=== PATIENT | female | born 1955 | race Asian ===

== ENCOUNTER 2019-06-07 09:16 | Emergency (ER) | payer SELFPAY ==
--- NOTE | 2019-06-07 09:27 | EDM.PDOC ---
ED HPI GENERAL MEDICAL PROBLEM - General Chief Complaint: Back Pain or Injury Stated Complaint: HIGH BP/BACK PAIN Time Seen by Provider: 06/07/19 09:26 - History of Present Illness INITIAL COMMENTS - FREE TEXT/NARRATIVE: 63-year-old female presents emergency room with sharp almost electrical pain between her shoulder blades extending down her left arm and it sometimes the right arm. Patient was sent here by the walk-in clinic at [place]. They did call report she had elevated blood pressure there systolics in the 180s at times. The patient recently moved here from [facility]. She has a history of hypertension tension treated with losartan and hyperlipidemia treated with Crestor. No prior history of coronary artery disease. The patient denies cough, she however she may have run a low-grade fever over the last couple of days. She's used some [id number] cold medication. She cannot identify any causes that make pain worse or better. Her son has done most the translating for her. Her pain is minimal at this point she does not need anything for pain control it was quite severe earlier. However this time she does rated at a 3. This pain started around 2:00 yesterday afternoon. The patient does get pain in her lower neck and upper back on a fairly regular basis but this is different and much worse. Upper Back Pain Score (Numeric/FACES): 8 - Related Data Allergies Allergy/AdvReac Type Severity Reaction Status Date / Time amoxicillin Allergy Cannot Verified 06/07/19 09:33 Remember Home Meds: Home Meds Losartan [Cozaar] 50 mg PO DAILY 06/07/19 [History] Losartan [Cozaar] 50 mg PO DAILY #10 tab 06/07/19 [Rx] Rosuvastatin [Crestor] 5 mg PO DAILY 06/07/19 [History] Rosuvastatin [Crestor] 5 mg PO DAILY #10 tab 06/07/19 [Rx] ED ROS GENERAL - Review of Systems Review Of Systems: See Below Constitutional: Reports: Fever (Possible) HEENT: Reports: Rhinitis, Throat Pain Respiratory: Reports: No Symptoms Cardiovascular: Reports: Chest Pain Endocrine: Reports: No Symptoms GI/Abdominal: Reports: No Symptoms : Reports: No Symptoms Musculoskeletal: Reports: No Symptoms Skin: Reports: No Symptoms Neurological: Reports: No Symptoms Immunologic: Reports: No Symptoms ED EXAM, GENERAL - Physical Exam Exam: See Below General Appearance: Alert, No Apparent Distress Head: Atraumatic, Normocephalic Neck: Normal Inspection, Supple, Non-Tender, Full Range of Motion. No: Lymphadenopathy (L), Lymphadenopathy (R) Respiratory/Chest: No Respiratory Distress, Lungs Clear, Normal Breath Sounds Cardiovascular: Regular Rate, Rhythm, No Edema, No Murmur GI/Abdominal: Normal Bowel Sounds, Soft, Non-Tender EKG INTERPRETATION EKG Date: 06/07/19 Rhythm: NSR [place]: Normal P-Wave: Present QRS: Normal ST-T: Other (Minimal ST depression in V3, V4 and V5) QT: Normal Comparison: NA - No Prior EKG EKG Interpretation Comments: Abnormal. A second EKG was obtained to check posterior leads and she demonstrated no ST elevation in these Course - Vital Signs Last Recorded V/S: Last Vital Signs Temp 37.1 C 06/07/19 09:23 Pulse 93 06/07/19 09:23 Resp 23 H 06/07/19 09:23 BP 135/89 06/07/19 10:56 Pulse Ox 95 06/07/19 09:23 - Orders/Labs/Meds Orders: Active Orders 24 hr Category Date Time Status EKG Documentation Completion [RC] STAT Care 06/07/19 09:45 Active Rapid Strep w/culture conf [STREP SCRN A RAPID W CULT Lab 06/07/19 09:54 Ordered CONF] [RM] Stat URINALYSIS W/MICROSCOPIC [UA W/MICROSCOPIC] [URIN] Stat Lab 06/07/19 09:45 Ordered Sodium Chloride 0.9% [Normal Saline] 100 ml Med 06/07/19 10:15 Active IV ASDIRECTED Sodium Chloride 0.9% [Saline Flush] Med 06/07/19 10:02 Active 10 ml FLUSH ONETIME PRN Medication Orders Sodium Chloride (Normal Saline) 100 mls @ 75 mls/hr IV ASDIRECTED FIONA Last Admin: 06/07/19 10:35 Dose: 75 mls/hr Sodium Chloride (Saline Flush) 10 ml FLUSH ONETIME PRN PRN Reason: IV FLUSH Last Admin: 06/07/19 10:35 Dose: 10 ml Admin: 06/07/19 10:31 Dose: 10 ml Labs: Laboratory Tests 06/07/19 06/07/19 06/07/19 Range/Units 09:46 09:46 09:46 WBC 10.75 H (3.98-10.04) K/mm3 RBC 4.52 (3.98-5.22) M/mm3 Hgb 13.1 (11.2-15.7) gm/L Hct 38.0 (34.1-44.9) % MCV 84.1 (79.4-94.8) fl MCH 29.0 (25.6-32.2) pg MCHC 34.5 (32.2-35.5) g/dl RDW Std Deviation 38.1 (36.4-46.3) fL Plt Count 271 (182-369) K/mm3 MPV 9.3 L (9.4-12.3) fl Neutrophils % (Manual) 74 H (40-60) % Band Neutrophils % 0 (0-10) % Lymphocytes % (Manual) 21 (20-40) % Atypical Lymphs % 0 % Monocytes % (Manual) 5 (2-10) % Eosinophils % (Manual) 0 L (0.7-5.8) % Basophils % (Manual) 0 L (0.1-1.2) Platelet Estimate Adequate Plt Morphology Comment Normal RBC Morph Comment Normal ESR 58 H (0-20) mm/hr PT (9.7-12.0) SECONDS INR APTT (22-31) SECONDS Sodium 140 (136-145) mEq/L Potassium 3.7 (3.5-5.1) mEq/L Chloride 104 (98-107) mEq/L Carbon Dioxide 26 (21-32) mEq/L Anion Gap 13.7 (5-15) BUN 10 (7-18) mg/dL Creatinine 0.8 (0.55-1.02) mg/dL Est Cr Clr Drug Dosing TNP Estimated GFR (MDRD) > 60 (>60) mL/min BUN/Creatinine Ratio 12.5 L (14-18) Glucose 104 (80-115) mg/dL Calcium 9.4 (8.5-10.1) mg/dL Total Bilirubin 1.0 (0.2-1.0) mg/dL AST 19 (15-37) U/L ALT 40 (14-59) U/L Alkaline Phosphatase 70 (46-116) U/L Troponin I < 0.017 (0.00-0.056) ng/mL C-Reactive Protein 3.7 H* (<1.0) mg/dL Total Protein 8.6 H (6.4-8.2) g/dl Albumin 3.9 (3.4-5.0) g/dl Globulin 4.7 gm/dL Albumin/Globulin Ratio 0.8 L (1-2) 06/07/19 Range/Units 09:46 WBC (3.98-10.04) K/mm3 RBC (3.98-5.22) M/mm3 Hgb (11.2-15.7) gm/L Hct (34.1-44.9) % MCV (79.4-94.8) fl MCH (25.6-32.2) pg MCHC (32.2-35.5) g/dl RDW Std Deviation (36.4-46.3) fL Plt Count (182-369) K/mm3 MPV (9.4-12.3) fl Neutrophils % (Manual) (40-60) % Band Neutrophils % (0-10) % Lymphocytes % (Manual) (20-40) % Atypical Lymphs % % Monocytes % (Manual) (2-10) % Eosinophils % (Manual) (0.7-5.8) % Basophils % (Manual) (0.1-1.2) Platelet Estimate Plt Morphology Comment RBC Morph Comment ESR (0-20) mm/hr PT 11.1 (9.7-12.0) SECONDS INR 1.02 APTT 25 (22-31) SECONDS Sodium (136-145) mEq/L Potassium (3.5-5.1) mEq/L Chloride (98-107) mEq/L Carbon Dioxide (21-32) mEq/L Anion Gap (5-15) BUN (7-18) mg/dL Creatinine (0.55-1.02) mg/dL Est Cr Clr Drug Dosing Estimated GFR (MDRD) (>60) mL/min BUN/Creatinine Ratio (14-18) Glucose (80-115) mg/dL Calcium (8.5-10.1) mg/dL Total Bilirubin (0.2-1.0) mg/dL AST (15-37) U/L ALT (14-59) U/L Alkaline Phosphatase (46-116) U/L Troponin I (0.00-0.056) ng/mL C-Reactive Protein (<1.0) mg/dL Total Protein (6.4-8.2) g/dl Albumin (3.4-5.0) g/dl Globulin gm/dL Albumin/Globulin Ratio (1-2) Meds: Medications Generic Name Dose Route Start Last Admin Trade Name Freq PRN Reason Stop Dose Admin Sodium Chloride 100 mls @ 75 mls/hr 06/07/19 10:15 06/07/19 10:35 Normal Saline IV 75 mls/hr ASDIRECTED FIONA Administration Sodium Chloride 10 ml 06/07/19 10:02 06/07/19 10:35 Saline Flush FLUSH 10 ml ONETIME PRN Administration IV FLUSH Discontinued Medications Generic Name Dose Route Start Last Admin Trade Name Freq PRN Reason Stop Dose Admin Iopamidol 100 ml 06/07/19 10:02 06/07/19 10:35 [id number] (76%) IVPUSH 06/07/19 10:03 100 ml ONETIME ONE Administration Nitroglycerin 0.4 mg 06/07/19 10:05 06/07/19 10:56 Nitrostat SL 0.4 mg Q5M PRN Administration Chest Pain - Re-Assessments/Exams Free Text/Narrative Re-Assessment/Exam: 06/07/19 10:00 EKG is nondiagnostic at this point she had some mild ST depression in V3 and V4 checks and posterior leads V7 and 8 that did not show any ST elevation. With real escalated blood pressure in the pain between his shoulder blades and the potential to lose a lot in translation we'll go ahead and check a CTA concerning about a dissection.. Labs inflammatory markers pending. Will not give aspirin unless this CTA comes back normal or not suggestive of aortic problem 06/07/19 11:14 Awaiting CTA report patient received 3 nitroglycerin her pain is no longer present her blood pressure has come down 06/07/19 11:24 CT report is back they focused more on a PE study rather than aortic study however did discuss the findings with the radiologist who looked at the images again is no evidence of dissection and no evidence of aneurysmal change to the aorta. Labs are back troponins normal inflammatory markers are up renal function is normal. 06/07/19 12:11 Findings lab work and imaging discussed with the patient. 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 She would like to forego further testing until she gets home. Offered observation here but she would like to get going. She is requesting refills of her losartan and Crestor for another week as she will run out before she has a chance to get home. It is recommended that she take a baby aspirin daily Departure - Departure Time of Disposition: 12:16 Disposition: Home, Self-Care 01 Clinical Impression: Chest pain Prescriptions: Losartan [Cozaar] 50 mg PO DAILY #10 tab Rosuvastatin [Crestor] 5 mg PO DAILY #10 tab Referrals: PCP,Not In Area [Primary Care Provider] - Forms: ED Department Discharge Additional Instructions: Return to the emergency room with any questions problems or worsening symptoms. Start a baby aspirin daily enteric-coated 81 mg. Follow-up with your regular doctor back home in [facility] as soon as you get back and discuss further heart testing. Try Tylenol 650 mg every 4 hours as needed for pain in your upper back and neck. - My Orders Last 24 Hours: My Active Orders 06/07/19 09:45 EKG Documentation Completion [RC] STAT URINALYSIS W/MICROSCOPIC [UA W/MICROSCOPIC] [URIN] Stat 06/07/19 09:54 Rapid Strep w/culture conf [STREP SCRN A RAPID W CULT CONF] [RM] Stat 06/07/19 10:02 Sodium Chloride 0.9% [Saline Flush] 10 ml FLUSH ONETIME PRN 06/07/19 10:15 Sodium Chloride 0.9% [Normal Saline] 100 ml IV ASDIRECTED - Assessment/Plan Last 24 Hours: My Active Orders 06/07/19 09:45 EKG Documentation Completion [RC] STAT URINALYSIS W/MICROSCOPIC [UA W/MICROSCOPIC] [URIN] Stat 06/07/19 09:54 Rapid Strep w/culture conf [STREP SCRN A RAPID W CULT CONF] [RM] Stat 06/07/19 10:02 Sodium Chloride 0.9% [Saline Flush] 10 ml FLUSH ONETIME PRN 06/07/19 10:15 Sodium Chloride 0.9% [Normal Saline] 100 ml IV ASDIRECTED
[2019-06-07] MEDS ORDERED: Iopamidol 755 Mg/ML 100 ML Bottle IVPUSH ONE (10:02)
[2019-06-07] MEDS ORDERED: Sodium Chloride 0.9% 100 ML IV SCH (10:15)
[2019-06-07] MEDS: Nitroglycerin 0.4 MG Tab.SL SL PRN ×3 (10:30→10:56)
[2019-06-07] MEDS: Sodium Chloride 0.9% 10 ML Syringe FLUSH PRN ×2 (10:31→10:35)
--- NOTE | 2019-06-07 11:13 | CT ---
CT chest Technique: Multiple axial sections were obtained from above the lung apices inferiorly through the lung bases. Intravenous contrast was utilized. Study has been performed as a pulmonary angiogram protocol. Comparison: No prior chest imaging. Findings: Pulmonary arteries are well-opacified. No filling defects are seen to indicate pulmonary embolism. Mediastinum and hilar regions show no adenopathy or mass. Mild coronary artery calcification is seen. Heart is mildly enlarged. Aorta shows no aneurysm. Large calcified gallstone is seen within the gallbladder measuring 1.8 cm. Other visualized upper abdominal structures appear within normal limits. Lungs show no acute parenchymal change. No pleural effusions are seen. Bone window settings were reviewed which show no acute osseous change. Impression: 1. No findings of pulmonary embolism. 2. Mild coronary artery calcification and mildly enlarged heart. 3. Single large gallstone is noted within the gallbladder. 4. Nothing acute is seen within either side of the lungs. Diagnostic code #2
[2019-06-07] MEDS ORDERED: Aspirin 325 MG Tab.EC PO ONE (12:12)
== END 2019-06-07 13:13 | disposition home or self-care (01) ==
LOC: JD.ED 09:16
DX: R07.9 Chest pain, unspecified (principal); Z88.1 Allergy status to other antibiotic agents; Z79.899 Other long term (current) drug therapy
CPT/HCPCS: 36415; 71275; 80053; 81001; 84484; 85007; 85027; 85610; 85652; 85730; 86140; 87430; 93005; 99284; A9270; J7030; Q9967; 93010